=== PATIENT | female | born 1990 | race Caucasian/White ===

== ENCOUNTER 2017-05-15 05:48 | Inpatient (IN) | payer BC ==
[2017-05-15] MEDS ORDERED: Carboprost Tromethamine 250 MCG/1 ML Amp IM PRN (08:23)
[2017-05-15] MEDS ORDERED: Methylergonovine 0.2 MG/1 ML Amp IM PRN (08:23)
[2017-05-15] MEDS ORDERED: Misoprostol 200 MCG Tab PO PRN (08:23)
[2017-05-15] MEDS ORDERED: Lidocaine 1% 50 ML MDV INJECT PRN (08:23)
[2017-05-15] MEDS ORDERED: Nalbuphine 10 MG/1 ML Vial IVPUSH PRN (08:23)
[2017-05-15] MEDS ORDERED: Sodium Chloride 0.9% 2.5 ML Syringe FLUSH PRN (08:23)
[2017-05-15] MEDS ORDERED: Water For Irrigation,Sterile 1,000 ML Container IRR PRN (08:23)
[2017-05-15] MEDS ORDERED: Sodium Chloride 0.9% 10 ML Syringe FLUSH PRN (08:23)
[2017-05-15] MEDS ORDERED: Butorphanol 1 MG/ML SDV IVPUSH PRN (08:23)
[2017-05-15] MEDS ORDERED: Ampicillin 2 GM in Sodium Chloride 0.9% 100 ML IV ONE (08:23)
[2017-05-15] MEDS ORDERED: Oxytocin/Lactated Ringers 30 UNIT/500 ML BAG IV SCH (08:30)
[2017-05-15] MEDS: Lactated Ringers 1,000 ML IV SCH ×2 (08:55→10:51)
[2017-05-15] MEDS ORDERED: Ropivacaine 0.2% 2 MG/ML 20 ML SDV ONE (10:39)
--- NOTE | 2017-05-15 11:09 | PCM.PREANE ---
Preanesthetic Assessment - Anesthesia/Transfusion/Family Hx Anesthesia History: Prior Anesthesia Without Reaction Family History of Anesthesia Reaction: No - Review of Systems Other: Reports: None - Physical Assessment Height: 5 ft 6 in Weight: 86.636 kg ASA Class: 2 Mental Status: Alert & Oriented x3 Airway Class: Mallampati = 1 Thyro-Mental Finger Breadths: 3 Mouth Opening Finger Breadths: 3 ROM/Head Extension: Full - Lab Values: Laboratory Last Values WBC 14.28 K/uL (4.0-11.0) H 05/15/17 08:33 RBC 4.15 M/uL (4.30-5.90) L 05/15/17 08:33 Hgb 12.3 g/dL (12.0-16.0) 05/15/17 08:33 Hct 37.1 % (36.0-46.0) 05/15/17 08:33 MCV 89.4 fL (80.0-98.0) 05/15/17 08:33 MCH 29.6 pg (27.0-32.0) 05/15/17 08:33 MCHC 33.2 g/dL (31.0-37.0) 05/15/17 08:33 RDW Std Deviation 45.3 fl (28.0-62.0) 05/15/17 08:33 RDW Coeff of Ally 14 % (11.0-15.0) 05/15/17 08:33 Plt Count 234 K/uL (150-400) 05/15/17 08:33 MPV 10.40 fL (7.40-12.00) 05/15/17 08:33 Nucleated RBC % 0.0 /100WBC 05/15/17 08:33 Nucleated RBCs # 0 K/uL 05/15/17 08:33 Blood Type AB POSITIVE 05/15/17 08:33 Antibody Screen NEGATIVE 05/15/17 08:33 - Allergies Allergies/Adverse Reactions: Allergies Allergy/AdvReac Type Severity Reaction Status Date / Time No Known Allergies Allergy Verified 05/15/17 05:56 - Blood Blood Available: Yes Product(s) Available: PRBC - Acknowledgements Anesthesia Type Planned: Epidural Pt an Appropriate Candidate for the Planned Anesthesia: Yes Alternatives and Risks of Anesthesia Discussed w Pt/Guardian: Yes Pt/Guardian Understands and Agrees with Anesthesia Plan: Yes PreAnesthesia Questionnaire - Past Surgical History HEENT Surgical History: Reports: Oral Surgery - CURRENT (IN HOUSE) MEDS Current Meds: Current Medications Butorphanol Tartrate (Stadol) 1 mg IVPUSH Q1H PRN PRN Reason: Pain Carboprost Tromethamine (Hemabate Ds) 250 mcg IM ASDIRECTED PRN PRN Reason: Post Hemorrhage Lactated Ringer's (Ringers, Lactated) 1,000 mls @ 150 mls/hr IV ASDIRECTED COUNT INCLUDES THE [facility] Last Admin: 05/15/17 10:51 Dose: 150 mls/hr Ampicillin Sodium 1 gm/ Sodium (Chloride) 50 mls @ 100 mls/hr IV Q4H COUNT INCLUDES THE [facility] Lidocaine HCl (Xylocaine 1%) 50 ml INJECT .ONCE PRN PRN Reason: Laceration repair Methylergonovine Maleate (Methergine) 0.2 mg IM ASDIRECTED PRN PRN Reason: Post Hemorrhage Misoprostol (Cytotec) 200 mcg PO .ONCE PRN PRN Reason: Post Hemorrhage Nalbuphine HCl (Nubain) 10 mg IVPUSH Q1H PRN PRN Reason: Pain (severe 7-10) Sodium Chloride (Saline Flush) 10 ml FLUSH ASDIRECTED PRN PRN Reason: Keep Vein Open Sodium Chloride (Saline Flush) 2.5 ml FLUSH ASDIRECTED PRN PRN Reason: Keep Vein Open Sterile Water (Sterile Water For Irrigation) 1,000 ml IRR ASDIRECTED PRN PRN Reason: delivery Discontinued Medications Ampicillin Sodium 2 gm/ Sodium (Chloride) 100 mls @ 200 mls/hr IV ONETIME ONE Stop: 05/15/17 08:52 Last Admin: 05/15/17 08:55 Dose: 200 mls/hr Oxytocin/Lactated Ringer's (Pitocin In Lr 30 Units/500 Ml) 30 unit in 500 mls @ 250 mls/hr IV TITRATE COUNT INCLUDES THE [facility] PRN Reason: 250 MUNITS/MIN Stop: 05/15/17 10:29 Ropivacaine/Fentanyl/NS (Fentanyl 2 Mcg-Ropiv 0.2%-Ns) Confirm Administered Dose 100 mls @ as directed .ROUTE .STK-MED ONE Stop: 05/15/17 10:40 Ropivacaine (Naropin 0.2%) Confirm Administered Dose 20 ml .ROUTE .STK-MED ONE Stop: 05/15/17 10:40
[2017-05-15] MEDS: Ampicillin 1 GM in Sodium Chloride 0.9% 50 ML IV SCH ×2 (12:11→16:11)
[2017-05-15] MEDS ORDERED: Oxytocin/Lactated Ringers 30 UNIT/500 ML BAG ONE (17:36)
--- NOTE | 2017-05-15 18:44 | PCM.DEL ---
L & D Note - General Info Date of Service: 05/15/17 Mother's Due Date: 05/17/17 - Delivery Note Labor: Spontaneous, Augmented by ARM Delivery Outcome: Livebirth Delivery Method: Spontaneous Vaginal Delivery Presentation: Left Occiput Anterior (ANT[place]INETTE) Nuchal Cord: None Anesthesia Type: None, Epidural Anesthetic: Lidocaine (Xylocaine) 0.5% Plain Amniotic Fluid Description: Clear Episiotomy Type: None Laceration: None, 2nd Degree, Perineal Suture type: Other (caprosyn 2-0) Suture size: 2-0 Placenta: Intact, Spontaneous Estimated Blood Loss: 300 Resuscitation Needed: No : Suctioned Score 1 min: 8 Score 5 min: 9 Vacuum Extractor Progress Note - Alternative Labor Strategies Considered Alternative Labor Strategies Considered:: Reports: No - Patient Data Weight - Most Recent: 86.636 kg Lab Results Last 24 Hours: Laboratory Results - last 24 hr 05/15/17 05/15/17 Range/Units 08:33 08:33 WBC 14.28 H (4.0-11.0) K/uL RBC 4.15 L (4.30-5.90) M/uL Hgb 12.3 (12.0-16.0) g/dL Hct 37.1 (36.0-46.0) % MCV 89.4 (80.0-98.0) fL MCH 29.6 (27.0-32.0) pg MCHC 33.2 (31.0-37.0) g/dL RDW Std Deviation 45.3 (28.0-62.0) fl RDW Coeff of Ally 14 (11.0-15.0) % Plt Count 234 (150-400) K/uL MPV 10.40 (7.40-12.00) fL Nucleated RBC % 0.0 /100WBC Nucleated RBCs # 0 K/uL Blood Type AB POSITIVE Antibody Screen NEGATIVE Med Orders - Current: Current Medications Butorphanol Tartrate (Stadol) 1 mg IVPUSH Q1H PRN PRN Reason: Pain Carboprost Tromethamine (Hemabate Ds) 250 mcg IM ASDIRECTED PRN PRN Reason: Post Hemorrhage Lactated Ringer's (Ringers, Lactated) 1,000 mls @ 150 mls/hr IV ASDIRECTED TIA Last Admin: 05/15/17 10:51 Dose: 150 mls/hr Ampicillin Sodium 1 gm/ Sodium (Chloride) 50 mls @ 100 mls/hr IV Q4H [facility] Last Admin: 05/15/17 16:11 Dose: 100 mls/hr Lidocaine HCl (Xylocaine 1%) 50 ml INJECT .ONCE PRN PRN Reason: Laceration repair Last Admin: 05/15/17 17:55 Dose: 50 ml Methylergonovine Maleate (Methergine) 0.2 mg IM ASDIRECTED PRN PRN Reason: Post Hemorrhage Misoprostol (Cytotec) 200 mcg PO .ONCE PRN PRN Reason: Post Hemorrhage Nalbuphine HCl (Nubain) 10 mg IVPUSH Q1H PRN PRN Reason: Pain (severe 7-10) Sodium Chloride (Saline Flush) 10 ml FLUSH ASDIRECTED PRN PRN Reason: Keep Vein Open Sodium Chloride (Saline Flush) 2.5 ml FLUSH ASDIRECTED PRN PRN Reason: Keep Vein Open Sterile Water (Sterile Water For Irrigation) 1,000 ml IRR ASDIRECTED PRN PRN Reason: delivery Last Admin: 05/15/17 17:55 Dose: 1,000 ml Discontinued Medications Ampicillin Sodium 2 gm/ Sodium (Chloride) 100 mls @ 200 mls/hr IV ONETIME ONE Stop: 05/15/17 08:52 Last Admin: 05/15/17 08:55 Dose: 200 mls/hr Oxytocin/Lactated Ringer's (Pitocin In Lr 30 Units/500 Ml) 30 unit in 500 mls @ 250 mls/hr IV TITRATE TIA PRN Reason: 250 MUNITS/MIN Stop: 05/15/17 10:29 Last Admin: 05/15/17 17:45 Dose: 250 munits/min, 250 mls/hr Ropivacaine/Fentanyl/NS (Fentanyl 2 Mcg-Ropiv 0.2%-Ns) Confirm Administered Dose 100 mls @ as directed .ROUTE .STK-MED ONE Stop: 05/15/17 10:40 Oxytocin/Lactated Ringer's (Pitocin In Lr 30 Units/500 Ml) Confirm Administered Dose 30 unit in 500 mls @ as directed .ROUTE .STK-MED ONE Stop: 05/15/17 17:37 Ropivacaine (Naropin 0.2%) Confirm Administered Dose 20 ml .ROUTE .STK-MED ONE Stop: 05/15/17 10:40 - Problem List & Annotations (1) Delivery normal SNOMED Code(s): 48337628 Code(s): O80 - ENCOUNTER FOR FULL-TERM UNCOMPLICATED DELIVERY; Z37.9 - OUTCOME OF DELIVERY, UNSPECIFIED Status: Acute Current Visit: Yes (2) Delivery normal SNOMED Code(s): 67118791 Code(s): O80 - ENCOUNTER FOR FULL-TERM UNCOMPLICATED DELIVERY; Z37.9 - OUTCOME OF DELIVERY, UNSPECIFIED Status: Acute Current Visit: Yes - Problem List Review Problem List Initiated/Reviewed/Updated: Yes - Assessment Assessment:: 26 P1 s/p with secondary degree perineal laceration - Plan Plan:: Pain control as need allow to ambulate Regular diet
[2017-05-15] MEDS ORDERED: Bisacodyl 10 MG Supp RECTAL PRN (18:53)
[2017-05-15] MEDS ORDERED: Ibuprofen 400 MG Tab PO PRN (18:53)
[2017-05-15] MEDS ORDERED: Docusate Sodium 100 MG Cap PO PRN (18:53)
[2017-05-15] MEDS ORDERED: Benzocaine/Menthol 20%-0.5% Spray 78 GM Cannister TOP PRN (18:53)
[2017-05-15] MEDS ORDERED: Acetaminophen 500 MG Tab PO PRN ×2 (18:53)
[2017-05-15] MEDS ORDERED: Lanolin 100% Cream 7 GM Tube TOP PRN (18:53)
[2017-05-15] MEDS ORDERED: Witch Hazel Medicated Pads 40/Jar TOP PRN (18:53)
[2017-05-15] MEDS ORDERED: Acetaminophen/oxyCODONE 325-5 MG Tab PO PRN (18:59)
--- NOTE | 2017-05-15 21:09 | PCM48HPAN ---
Post Anesthesia Note - EVALUATION WITHIN 48HRS OF ANESTHETIC Vital Signs in Normal Range: Yes Patient Participated in Evaluation: Yes Respiratory Function Stable: Yes Airway Patent: Yes Cardiovascular Function Stable: Yes Hydration Status Stable: Yes Pain Control Satisfactory: Yes Nausea and Vomiting Control Satisfactory: Yes Mental Status Recovered: Yes
[2017-05-15] MEDS: Ibuprofen 800 MG Tab PO PRN (22:42)
[2017-05-16 05:39] VITALS: BP 101/58
--- NOTE | 2017-05-16 08:10 | PCM.PNPP ---
<Del Doss - Last Filed: 05/16/17 08:04> - General Info Date of Service: 05/16/17 Admission Dx/Problem (Free Text): 39/5 weeks gestation, spontaneous onset of labor Subjective Update: Pt is doing well today. Her only concern is that she has some pain on the bottom of her tailbone. She has decreasing, non foul smelling lochia. Pain has been well controlled. Patient has been without difficulties. Pt has had no difficulties urination but has not had a bowel movment yet. Pt denies fever, chills, SOB, or chest pain. Functional Status: Reports: Pain Controlled, Tolerating Diet, Ambulating, Urinating - Review of Systems General: Reports: No Symptoms Pulmonary: Reports: No Symptoms Cardiovascular: Reports: No Symptoms Gastrointestinal: Reports: No Symptoms Genitourinary: Reports: No Symptoms - General Info Date of Service: 05/16/17 - Patient Data Vital Signs - Most Recent: Last Vital Signs Temp 36.5 C 05/16/17 04:00 Pulse 79 05/16/17 04:00 Resp 16 05/16/17 04:00 BP 101/58 L 05/16/17 04:00 Pulse Ox 95 05/16/17 04:00 Weight - Most Recent: 191 lb Lab Results - Last 24 Hours: Laboratory Results - last 24 hr 05/15/17 05/15/17 05/16/17 Range/Units 08:33 08:33 04:29 WBC 14.28 H (4.0-11.0) K/uL RBC 4.15 L (4.30-5.90) M/uL Hgb 12.3 11.1 L (12.0-16.0) g/dL Hct 37.1 33.7 L (36.0-46.0) % MCV 89.4 (80.0-98.0) fL MCH 29.6 (27.0-32.0) pg MCHC 33.2 (31.0-37.0) g/dL RDW Std Deviation 45.3 (28.0-62.0) fl RDW Coeff of Ally 14 (11.0-15.0) % Plt Count 234 (150-400) K/uL MPV 10.40 (7.40-12.00) fL Nucleated RBC % 0.0 /100WBC Nucleated RBCs # 0 K/uL Blood Type AB POSITIVE Antibody Screen NEGATIVE Med Orders - Current: Current Medications Acetaminophen (Tylenol Extra Strength) 500 mg PO Q4H PRN PRN Reason: Pain Acetaminophen (Tylenol Extra Strength) 1,000 mg PO Q4H PRN PRN Reason: Pain Benzocaine/Menthol (Dermoplast Pain Relief 20%-0.5% [place]) 0 gm TOP ASDIRECTED PRN PRN Reason: Perineal Comfort Measure Last Admin: 05/15/17 22:41 Dose: 1 spray Bisacodyl (Dulcolax) 10 mg RECTAL .ONCE PRN PRN Reason: Constipation Docusate Sodium (Colace) 100 mg PO BID PRN PRN Reason: Constipation Last Admin: 05/15/17 22:42 Dose: 100 mg Emollient Ointment (Lansinoh Hpa) 0 gm TOP ASDIRECTED PRN PRN Reason: Sore Nipples Last Admin: 05/15/17 22:42 Dose: 1 gm Ibuprofen (Motrin) 400 mg PO Q4H PRN PRN Reason: Pain Ibuprofen (Motrin) 800 mg PO Q6H PRN PRN Reason: Pain Last Admin: 05/15/17 22:42 Dose: 800 mg Oxycodone/Acetaminophen (Percocet 325-5 Mg) 1 - 2 tab PO Q6H PRN PRN Reason: Pain (moderate 4-6) Sodium Chloride (Saline Flush) 10 ml FLUSH ASDIRECTED PRN PRN Reason: Keep Vein Open Sodium Chloride (Saline Flush) 2.5 ml FLUSH ASDIRECTED PRN PRN Reason: Keep Vein Open Witch Daisy (Tucks) 1 pad TOP ASDIRECTED PRN PRN Reason: comfort care Last Admin: 05/15/17 22:41 Dose: 1 pad Discontinued Medications Butorphanol Tartrate (Stadol) 1 mg IVPUSH Q1H PRN PRN Reason: Pain Carboprost Tromethamine (Hemabate Ds) 250 mcg IM ASDIRECTED PRN PRN Reason: Post Hemorrhage Ampicillin Sodium 2 gm/ Sodium (Chloride) 100 mls @ 200 mls/hr IV ONETIME ONE Stop: 05/15/17 08:52 Last Admin: 05/15/17 08:55 Dose: 200 mls/hr Lactated Ringer's (Ringers, Lactated) 1,000 mls @ 150 mls/hr IV ASDIRECTED TIA Last Admin: 05/15/17 10:51 Dose: 150 mls/hr Oxytocin/Lactated Ringer's (Pitocin In Lr 30 Units/500 Ml) 30 unit in 500 mls @ 250 mls/hr IV TITRATE TIA PRN Reason: 250 MUNITS/MIN Stop: 05/15/17 10:29 Last Admin: 05/15/17 17:45 Dose: 250 munits/min, 250 mls/hr Ampicillin Sodium 1 gm/ Sodium (Chloride) 50 mls @ 100 mls/hr IV Q4H TIA Last Admin: 05/15/17 16:11 Dose: 100 mls/hr Ropivacaine/Fentanyl/NS (Fentanyl 2 Mcg-Ropiv 0.2%-Ns) Confirm Administered Dose 100 mls @ as directed .ROUTE .STK-MED ONE Stop: 05/15/17 10:40 Last Admin: 05/16/17 05:47 Dose: Not Given Oxytocin/Lactated Ringer's (Pitocin In Lr 30 Units/500 Ml) Confirm Administered Dose 30 unit in 500 mls @ as directed .ROUTE .STK-MED ONE Stop: 05/15/17 17:37 Last Admin: 05/16/17 05:47 Dose: Not Given Lidocaine HCl (Xylocaine 1%) 50 ml INJECT .ONCE PRN PRN Reason: Laceration repair Last Admin: 05/15/17 17:55 Dose: 50 ml Methylergonovine Maleate (Methergine) 0.2 mg IM ASDIRECTED PRN PRN Reason: Post Hemorrhage Misoprostol (Cytotec) 200 mcg PO .ONCE PRN PRN Reason: Post Hemorrhage Nalbuphine HCl (Nubain) 10 mg IVPUSH Q1H PRN PRN Reason: Pain (severe 7-10) Ropivacaine (Naropin 0.2%) Confirm Administered Dose 20 ml .ROUTE .STK-MED ONE Stop: 05/15/17 10:40 Last Admin: 05/16/17 05:47 Dose: Not Given Sterile Water (Sterile Water For Irrigation) 1,000 ml IRR ASDIRECTED PRN PRN Reason: delivery Last Admin: 05/15/17 17:55 Dose: 1,000 ml - Interaction Disposition, : in Room with Family Infant Interaction: Holding Infant Feeding: Breastfed ; Nursed Well Support Person: - Recovery Exam Fundal Tone: Firm Fundal Level: 1 Fingerbreadths Above Umbilicus Fundal Placement: Midline Lochia Amount: Small Lochia Color: Rubra/Red Perineum Description: Other (see below) Episiotomy/Laceration: Approximated Bladder Status: Voiding Urinary Elimination: Voided - Exam General: Alert, Oriented Lungs: Clear to Auscultation, Normal Respiratory Effort. No: Crackles, Rales, Rhonchi Cardiovascular: Regular Rate, Regular Rhythm, No Murmurs. No: Gallops, Rubs GI/Abdominal Exam: Normal Bowel Sounds, Soft (Utuerus firm, midline, 2cm above umbilicus), No Distention - Problem List Review Problem List Initiated/Reviewed/Updated: Yes - Assessment Assessment:: 26 P1 s/p with secondary degree perineal laceration, PPD 1 Pain well controlled Urinating well - Plan Plan:: Routine cares Pain control as need Continue to support and frequent ambulation Followup in 6 weeks <Fany Leon - Last Filed: 05/16/17 09:05> - Patient Data Vital Signs - Most Recent: Last Vital Signs Temp 36.5 C 05/16/17 04:00 Pulse 79 05/16/17 04:00 Resp 16 05/16/17 04:00 BP 101/58 L 05/16/17 04:00 Pulse Ox 95 05/16/17 04:00 Lab Results - Last 24 Hours: Laboratory Results - last 24 hr 05/15/17 05/16/17 Range/Units 08:33 04:29 Hgb 11.1 L (12.0-16.0) g/dL Hct 33.7 L (36.0-46.0) % Blood Type AB POSITIVE Antibody Screen NEGATIVE Med Orders - Current: Current Medications Acetaminophen (Tylenol Extra Strength) 500 mg PO Q4H PRN PRN Reason: Pain Acetaminophen (Tylenol Extra Strength) 1,000 mg PO Q4H PRN PRN Reason: Pain Benzocaine/Menthol (Dermoplast Pain Relief 20%-0.5% [place]) 0 gm TOP ASDIRECTED PRN PRN Reason: Perineal Comfort Measure Last Admin: 05/15/17 22:41 Dose: 1 spray Bisacodyl (Dulcolax) 10 mg RECTAL .ONCE PRN PRN Reason: Constipation Docusate Sodium (Colace) 100 mg PO BID PRN PRN Reason: Constipation Last Admin: 05/15/17 22:42 Dose: 100 mg Emollient Ointment (Lansinoh Hpa) 0 gm TOP ASDIRECTED PRN PRN Reason: Sore Nipples Last Admin: 05/15/17 22:42 Dose: 1 gm Ibuprofen (Motrin) 400 mg PO Q4H PRN PRN Reason: Pain Ibuprofen (Motrin) 800 mg PO Q6H PRN PRN Reason: Pain Last Admin: 05/15/17 22:42 Dose: 800 mg Oxycodone/Acetaminophen (Percocet 325-5 Mg) 1 - 2 tab PO Q6H PRN PRN Reason: Pain (moderate 4-6) Sodium Chloride (Saline Flush) 10 ml FLUSH ASDIRECTED PRN PRN Reason: Keep Vein Open Sodium Chloride (Saline Flush) 2.5 ml FLUSH ASDIRECTED PRN PRN Reason: Keep Vein Open Witch Daisy (Tucks) 1 pad TOP ASDIRECTED PRN PRN Reason: comfort care Last Admin: 05/15/17 22:41 Dose: 1 pad Discontinued Medications Butorphanol Tartrate (Stadol) 1 mg IVPUSH Q1H PRN PRN Reason: Pain Carboprost Tromethamine (Hemabate Ds) 250 mcg IM ASDIRECTED PRN PRN Reason: Post Hemorrhage Ampicillin Sodium 2 gm/ Sodium (Chloride) 100 mls @ 200 mls/hr IV ONETIME ONE Stop: 05/15/17 08:52 Last Admin: 05/15/17 08:55 Dose: 200 mls/hr Lactated Ringer's (Ringers, Lactated) 1,000 mls @ 150 mls/hr IV ASDIRECTED TIA Last Admin: 05/15/17 10:51 Dose: 150 mls/hr Oxytocin/Lactated Ringer's (Pitocin In Lr 30 Units/500 Ml) 30 unit in 500 mls @ 250 mls/hr IV TITRATE TIA PRN Reason: 250 MUNITS/MIN Stop: 05/15/17 10:29 Last Admin: 05/15/17 17:45 Dose: 250 munits/min, 250 mls/hr Ampicillin Sodium 1 gm/ Sodium (Chloride) 50 mls @ 100 mls/hr IV Q4H TIA Last Admin: 05/15/17 16:11 Dose: 100 mls/hr Ropivacaine/Fentanyl/NS (Fentanyl 2 Mcg-Ropiv 0.2%-Ns) Confirm Administered Dose 100 mls @ as directed .ROUTE .[employer] ONE Stop: 05/15/17 10:40 Last Admin: 05/16/17 05:47 Dose: Not Given Oxytocin/Lactated Ringer's (Pitocin In Lr 30 Units/500 Ml) Confirm Administered Dose 30 unit in 500 mls @ as directed .ROUTE .[employer] ONE Stop: 05/15/17 17:37 Last Admin: 05/16/17 05:47 Dose: Not Given Lidocaine HCl (Xylocaine 1%) 50 ml INJECT .ONCE PRN PRN Reason: Laceration repair Last Admin: 05/15/17 17:55 Dose: 50 ml Methylergonovine Maleate (Methergine) 0.2 mg IM ASDIRECTED PRN PRN Reason: Post Hemorrhage Misoprostol (Cytotec) 200 mcg PO .ONCE PRN PRN Reason: Post Hemorrhage Nalbuphine HCl (Nubain) 10 mg IVPUSH Q1H PRN PRN Reason: Pain (severe 7-10) Ropivacaine (Naropin 0.2%) Confirm Administered Dose 20 ml .ROUTE .[employer] ONE Stop: 05/15/17 10:40 Last Admin: 05/16/17 05:47 Dose: Not Given Sterile Water (Sterile Water For Irrigation) 1,000 ml IRR ASDIRECTED PRN PRN Reason: delivery Last Admin: 05/15/17 17:55 Dose: 1,000 ml - My Orders Last 24 Hours: My Active Orders 05/15/17 08:23 Peripheral IV Care [RC] . DIRECTED Sodium Chloride 0.9% [Saline Flush] 10 ml FLUSH ASDIRECTED PRN Sodium Chloride 0.9% [Saline Flush] 2.5 ml FLUSH ASDIRECTED PRN 05/15/17 08:24 Heart Tones [RC] CONTINUOUS Non Stress Test [RC] PER UNIT ROUTINE May Shower [RC] ASDIRECTED Notify Provider [RC] PRN Up ad Pushpa [RC] ASDIRECTED Vaginal Exam [RC] PRN Vital Signs [RC] PER UNIT ROUTINE Peripheral IV Insertion Adult [OM.PC] Routine 05/16/17 Lunch Regular Diet [DIET]
[2017-05-16] MEDS: Ibuprofen 800 MG Tab PO PRN (11:25)
--- NOTE | 2017-05-16 15:29 | OR ---
SURGEON: AMBROCIO HAGENUZOENRIQUE DATE OF PROCEDURE: 05/15/2017 PREOPERATIVE DIAGNOSIS: A 26-year-old 1, para 0, at 39 weeks 5 days, admitted in early labor and progressed to active labor and delivered. POSTOPERATIVE DIAGNOSIS: A 26-year-old 1, para 0, at 39 weeks 5 days, admitted in early labor and progressed to active labor and delivered. PROCEDURE: Spontaneous vaginal delivery. FINDINGS: Live female born, scores were 8 and 9, weight was 3960 grams. Placenta was delivered without complications. COMPLICATIONS: None. ESTIMATED BLOOD LOSS: 300 mL. DISPOSITION: Stable, infant to [facility]. BRIEF HISTORY: She was a 26-year-old low-risk patient, GBS positive status, who came in at around 0800, in early labor. Vaginal exam at that time was 3 cm, 80, -1. The patient then was re-evaluated by 1130; was found to be 4 cm, 80, -1. At 1230, she was again re-evaluated, and she was ruptured after she has received 2 doses of antibiotics for GBS prophylaxis. The patient was noted to be 5 cm, 80, -1 at the time of rupture. The patient then was re-evaluated at 1630 hours and was found to be fully dilated, +1 station. The patient was then encouraged to push. The patient pushed for about 2 hours. The infant was then subsequently delivered, and the cord was then clamped and cut. was handed over to the awaiting nurse. The placenta was then delivered by controlled cord traction, after the arterial blood gases were taken. A second-degree laceration was noted. This was sutured in layers with Caprosyn suture 2-0. Hemostasis was noted after the suturing. The placenta was found to be intact. The Pitocin was running at this point. All instruments were correct x2. and infant was weighed and then brought to the mother for . The patient was in stable condition. Vital signs were normal after delivery. The patient tolerated the procedure well. Dr. Peterson was present for the entire procedure. GURVINDER QUINONES /[id number] MTDMaxine
== END 2017-05-16 22:10 | disposition home or self-care (01) | DRG 560 ==
LOC: MW.OBCHECK 05:48 → MW.OB 05:49 → MW.OBCHECK 08:24 → MW.OB 08:24 → INTOOBSV 15:53 → OBSVTOIN 15:53 → MW.OB 22:30
PROVIDERS: ADMIT Obstetrics & Gynecology; ATTEND Obstetrics & Gynecology
PROC: 10E0XZZ Delivery of Products of Conception, External Approach (ICD-10-PCS; principal; 2017-05-15)
PROC: 0KQM0ZZ Repair Perineum Muscle, Open Approach (ICD-10-PCS; 2017-05-15)
PROC: 10907ZC Drainage of Amniotic Fluid, Therapeutic from Products of Conception, Via Natural or Artificial Opening (ICD-10-PCS; 2017-05-15)
DX: O70.1 Second degree perineal laceration during delivery (principal); Z3A.39 39 weeks gestation of pregnancy; Z37.0 Single live birth
CPT/HCPCS: 36415; 59025; 85014; 85018; 85027; 86850; 86900; 86901; A9270-GY; J0290; J2795; J7030; J7050; J7120

== ENCOUNTER 2018-01-24 16:20 | Emergency (ER) | payer BC ==
--- NOTE | 2018-01-24 16:37 | EDM.PDOC ---
ED HPI GENERAL MEDICAL PROBLEM - General Chief Complaint: Laceration Stated Complaint: Laceration Time Seen by Provider: 01/24/18 16:21 Source of Information: Reports: Patient History Limitations: Reports: No Limitations - History of Present Illness INITIAL COMMENTS - FREE TEXT/NARRATIVE: HISTORY AND PHYSICAL: History of present illness: Patient is a 27-year-old female who presents to the emergency room today with complaints of right index finger laceration, pain and certain of infection. She states 2 days ago she had a laceration on the pad of her right index finger and since that time has been doing Epsom salt soaks, bacitracin dressings and thorough cleaning. She has had burning pain to the distal tip of her finger and is concerned she may have an infection as the skin appears erythematous and tender to touch. No drainage or exudate coming from the site. Denies any crush injury or trauma to the affected finer. Denies any fever, chills, chest pain, shortness of breath or cough. Denies any abdominal pain, nausea, vomiting, diarrhea or constipation. Unsure of last tetanus update. Review of systems: As per history of present illness and below otherwise all systems reviewed and negative. Past medical history: As per history of present illness and as reviewed below otherwise noncontributory. Surgical history: As per history of present illness and as reviewed below otherwise noncontributory. Social history: No reported history of drug or alcohol abuse. Family history: As per history of present illness and as reviewed below otherwise noncontributory. Physical exam: General: Developed and well-nourished 27-year-old female. Alert and oriented. Nontoxic appearing and in no acute distress. HEENT: Atraumatic, normocephalic, pupils equal and reactive bilaterally, negative for conjunctival pallor or scleral icterus, mucous membranes moist, throat clear, neck supple, nontender, trachea midline. No drooling or trismus noted. No meningeal signs Lungs: Clear to auscultation, breath sounds equal bilaterally, chest nontender. Heart: S1S2, regular rate and rhythm without overt murmur Abdomen: Soft, nondistended, nontender. Negative for masses or hepatosplenomegaly. Negative for costovertebral tenderness. Pelvis: Stable nontender. Genitourinary: Deferred. Rectal: Deferred. Skin: Superficial skin avulsion noted to the distal tip of her right index finger. Intact, warm, dry. No lesions or rashes noted. Extremities: Atraumatic, negative for cords or calf pain. Neurovascular unremarkable. Neuro: Awake, alert, oriented. Cranial nerves II through XII unremarkable. Cerebellum unremarkable. Motor and sensory unremarkable throughout. Exam nonfocal. Notes: Area cleansed with chlorhexidine. Bacitracin dressing/tube gauze dressing applied. Will prescribe Keflex 500 mg twice a day 10 days. Tramadol 1 tab every 4-6 hours as needed for nighttime use. Dispense 10, no refill. Her to follow-up with Dr. Nisha Bowman, the hand surgeon for further evaluation and management. She voices understanding and is agreeable to plan of care. She denies any further questions at this time. Diagnostics: [] Therapeutics: Tetanus, wound care, bacitracin dressing. Impression: Laceration Plan: 1. Please take the area clean and dry. Take the antibiotic as prescribed. 2. Tylenol and/or ibuprofen as needed for pain management. Tramadol for nighttime use. This medication may cause drowsiness so do not take it will driving or needing to be functioning outside of the house. 3. Follow-up with the hand surgeon (Dr Sridevi Bowman) or your primary care provider in the next 1-2 days. Return to the ED as needed and as discussed. Definitive disposition and diagnosis as appropriate pending reevaluation and review of above. Duration: Day(s): Location: Reports: Upper Extremity, Right - Related Data Allergies Allergy/AdvReac Type Severity Reaction Status Date / Time No Known Allergies Allergy Verified 01/24/18 16:28 Home Meds: Home Meds . [No Known Home Meds] 01/24/18 [History] Past Medical History - Past Surgical History HEENT Surgical History: Reports: Oral Surgery Social & Family History - Family History Cardiac: Reports: High Cholesterol, Hypertension, Other (See Below) Other Cardiac Family History: heart disease Neurological: Reports: Parkinson's Endocrine/Metabolic: Reports: Diabetes, type II, Hypothyroidism Oncologic: Reports: Brain, Ovarian - Caffeine Use Caffeine Use: Reports: Coffee, Soda, Tea ED ROS GENERAL - Review of Systems Review Of Systems: ROS reveals no pertinent complaints other than HPI. ED EXAM, SKIN/RASH Exam: See Below (See dictation) Departure - Departure Time of Disposition: 16:38 Disposition: Home, Self-Care 01 Clinical Impression: Finger laceration Qualifiers: Encounter type: initial encounter Finger: index finger Damage to nail status: without damage Foreign body presence: without foreign body Laterality: right Qualified Code(s): S61.210A - Laceration without foreign body of right index finger without damage to nail, initial encounter - Discharge Information Instructions: Laceration Care, Adult, [id number] Referrals: PCP,None [Primary Care Provider] - Additional Instructions: The following information is given to patients seen in the emergency department who are being discharged to home. This information is to outline your options for follow-up care. We provide all patients seen in our emergency department with a follow-up referral. The need for follow-up, as well as the timing and circumstances, are variable depending upon the specifics of your emergency department visit. If you don't have a primary care physician on staff, we will provide you with a referral. We always advise you to contact your personal physician following an emergency department visit to inform them of the circumstance of the visit and for follow-up with them and/or the need for any referrals to a consulting specialist. The emergency department will also refer you to a specialist when appropriate. This referral assures that you have the opportunity for follow-up care with a specialist. All of these measure are taken in an effort to provide you with optimal care, which includes your follow-up. Under all circumstances we always encourage you to contact your private physician who remains a resource for coordinating your care. When calling for follow-up care, please make the office aware that this follow-up is from your recent emergency room visit. If for any reason you are refused follow-up, please contact the [facility] Emergency Department at and asked to speak to the emergency department charge nurse. [facility] [address] [place] [id number] [facility] Specialty Care - Plastic Surgery Professional Building [address] [place] [address], [address] [place] [address] 1. Please take the area clean and dry. Take the antibiotic as prescribed. 2. Tylenol and/or ibuprofen as needed for pain management. Tramadol for nighttime use. This medication may cause drowsiness so do not take it will driving or needing to be functioning outside of the house. 3. Follow-up with the hand surgeon (Dr Sridevi Bowman) or your primary care provider in the next 1-2 days. Return to the ED as needed and as discussed.
[2018-01-24] MEDS ORDERED: Diphtheria,Pertussis(Acell),Tetanus Vaccine 0.5 ML Syringe IM ONE (16:39)
[2018-01-24] MEDS ORDERED: Bacitracin Oint 1 GM U/D Packet TOP ONE (16:39)
[2018-01-24 17:38] VITALS: BP 117/76
== END 2018-01-24 17:34 | disposition home or self-care (01) ==
LOC: MW.ED 16:20
DX: S61.210A Laceration without foreign body of right index finger without damage to nail, initial encounter (principal); X58.XXXA Exposure to other specified factors, initial encounter
CPT/HCPCS: 90471; 90715; 99282; 99282-25

== ENCOUNTER 2019-09-05 07:56 | Inpatient (IN) | payer BC ==
[2019-09-05] MEDS ORDERED: Ondansetron 4 MG/2 ML SDV IVPUSH PRN (08:18)
[2019-09-05] MEDS ORDERED: Sodium Chloride 0.9% 2.5 ML Syringe FLUSH PRN (08:18)
[2019-09-05] MEDS ORDERED: Sodium Chloride 0.9% 10 ML SDV IV PRN (08:18)
[2019-09-05] MEDS ORDERED: Terbutaline 1 MG/ML SDV SUBCUT PRN (08:18)
[2019-09-05] MEDS ORDERED: Tranexamic Acid 1,000 MG in Sodium Chloride 0.9% 100 ML IV PRN (08:18)
[2019-09-05] MEDS ORDERED: Sodium Chloride 0.9% 10 ML Syringe FLUSH PRN (08:18)
[2019-09-05] MEDS ORDERED: Lidocaine 1% 50 ML MDV INJECT PRN (08:18)
[2019-09-05] MEDS ORDERED: Methylergonovine 0.2 MG/1 ML Amp IM PRN (08:18)
[2019-09-05] MEDS ORDERED: Nalbuphine 10 MG/1 ML Vial IVPUSH PRN (08:18)
[2019-09-05] MEDS ORDERED: Butorphanol 1 MG/ML SDV IVPUSH PRN (08:18)
[2019-09-05] MEDS ORDERED: Misoprostol 200 MCG Tab PO PRN (08:18)
[2019-09-05] MEDS ORDERED: Water For Irrigation,Sterile 1,000 ML Container IRR PRN (08:18)
[2019-09-05] MEDS ORDERED: Misoprostol 25 MCG (1/4 of 100 MCG) Tab VAG PRN (08:18)
[2019-09-05] MEDS ORDERED: Carboprost Tromethamine 250 MCG/1 ML Amp IM PRN (08:18)
[2019-09-05] MEDS ORDERED: Oxytocin/0.9 % Sodium Chloride 30 UNIT/500 ML BAG IV SCH ×2 (08:30)
[2019-09-05] MEDS: Misoprostol 25 MCG (1/4 of 100 MCG) Tab VAG PRN ×3 (13:36→21:58)
[2019-09-06] MEDS: Lactated Ringers 1,000 ML IV SCH ×2 (03:21→06:02)
[2019-09-06] MEDS ORDERED: Bupivicaine/fentaNYL/NS 250 ML ONE (05:50)
--- NOTE | 2019-09-06 06:39 | PCM.PREANE ---
Preanesthetic Assessment - Procedure Proposed Procedure: continuous labor epidural - Anesthesia/Transfusion/Family Hx Anesthesia History: Prior Anesthesia Without Reaction Transfusion History: No Prior Transfusion(s) - Review of Systems General: No Symptoms Pulmonary: No Symptoms Cardiovascular: No Symptoms Gastrointestinal: No Symptoms Neurological: No Symptoms Other: Reports: None - Physical Assessment Height: 5 ft 6 in Weight: 90.718 kg ASA Class: 2 Mental Status: Alert & Oriented x3 Airway Class: Mallampati = 1 Dentition: Reports: Normal Dentition ROM/Head Extension: Full Lungs: Clear to Auscultation, Normal Respiratory Effort Cardiovascular: Regular Rate, Regular Rhythm - Lab Values: Laboratory Last Values WBC 8.21 K/uL (4.0-11.0) 09/05/19 08:50 RBC 4.11 M/uL (4.30-5.90) L 09/05/19 08:50 Hgb 12.7 g/dL (12.0-16.0) 09/05/19 08:50 Hct 37.6 % (36.0-46.0) 09/05/19 08:50 MCV 91.5 fL (80.0-98.0) 09/05/19 08:50 MCH 30.9 pg (27.0-32.0) 09/05/19 08:50 MCHC 33.8 g/dL (31.0-37.0) 09/05/19 08:50 RDW Std Deviation 44.2 fl (28.0-62.0) 09/05/19 08:50 RDW Coeff of Ally 13 % (11.0-15.0) 09/05/19 08:50 Plt Count 203 K/uL (150-400) 09/05/19 08:50 MPV 10.50 fL (7.40-12.00) 09/05/19 08:50 Nucleated RBC % 0.0 /100WBC 09/05/19 08:50 Nucleated RBCs # 0 K/uL 09/05/19 08:50 Blood Type AB POSITIVE 09/05/19 08:50 Antibody Screen NEGATIVE 09/05/19 08:50 - Allergies Allergies/Adverse Reactions: Allergies Allergy/AdvReac Type Severity Reaction Status Date / Time No Known Allergies Allergy Verified 01/24/18 16:28 - Acknowledgements Anesthesia Type Planned: Epidural Pt an Appropriate Candidate for the Planned Anesthesia: Yes Alternatives and Risks of Anesthesia Discussed w Pt/Guardian: Yes Pt/Guardian Understands and Agrees with Anesthesia Plan: Yes PreAnesthesia Questionnaire - Past Health History Medical/Surgical History: Denies Medical/Surgical History HEENT History: Reports: None Cardiovascular History: Reports: None Respiratory History: Reports: None Gastrointestinal History: Reports: None Genitourinary History: Reports: None 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: Musculoskeletal History: Reports: None Neurological History: Reports: None Hematologic History: Reports: None - Infectious Disease History Infectious Disease History: Reports: Chicken Pox - Past Surgical History HEENT Surgical History: Reports: Oral Surgery - SUBSTANCE USE Smoking Status *Q: Never Smoker Tobacco Use Within Last Twelve Months: No Second Hand Smoke Exposure: No Recreational Drug Use History: No - HOME MEDS Home Medications: Home Meds Acetaminophen [Tylenol] 325 mg PO Q4H PRN 08/26/19 [History] Ferrous Sulfate [Iron] 325 mg PO DAILY 08/26/19 [History] Magnesium 250 mg PO DAILY 08/26/19 [History] Vits #93/Iron Fum/FA [ Formula Tablet] 1 each PO DAILY [History] - CURRENT (IN HOUSE) MEDS Current Meds: Current Medications Butorphanol Tartrate (Stadol) 1 mg IVPUSH Q1H PRN PRN Reason: Pain Last Admin: 09/06/19 03:28 Dose: 1 mg Carboprost Tromethamine (Hemabate Ds) 250 mcg IM ASDIRECTED PRN PRN Reason: Post Hemorrhage Lactated Ringer's (Ringers, Lactated) 1,000 mls @ 150 mls/hr IV ASDIRECTED TIA Last Admin: 09/06/19 06:02 Dose: 150 mls/hr Oxytocin/Sodium Chloride (Oxytocin 30 Unit/500 Ml-Ns) 30 unit in 500 mls @ 500 mls/hr IV TITRATE TIA Oxytocin/Sodium Chloride (Oxytocin 30 Unit/500 Ml-Ns) 30 unit in 500 mls @ 2 mls/hr IV TITRATE TIA; Protocol Last Titration: 09/06/19 04:58 Dose: 10 munits/min, 10 mls/hr Tranexamic Acid 1,000 mg/ (Sodium Chloride) 110 mls @ 660 mls/hr IV ONETIME PRN PRN Reason: Bleeding Lidocaine HCl (Xylocaine 1%) 50 ml INJECT ONETIME PRN PRN Reason: Laceration repair Methylergonovine Maleate (Methergine) 0.2 mg IM ASDIRECTED PRN PRN Reason: Post Hemorrhage Misoprostol (Cytotec) 200 mcg PO ONETIME PRN PRN Reason: Post Hemorrhage Misoprostol (Cytotec) 25 mcg VAG ONETIME PRN PRN Reason: Cervical Ripening Last Admin: 09/05/19 09:05 Dose: 25 mcg Misoprostol (Cytotec) 25 mcg VAG Q4H PRN PRN Reason: Cervical Ripening Last Admin: 09/05/19 21:58 Dose: 25 mcg Nalbuphine HCl (Nubain) 10 mg IVPUSH Q1H PRN PRN Reason: Pain (severe 7-10) Ondansetron HCl (Zofran) 4 mg IVPUSH Q6H PRN PRN Reason: Nausea/Vomiting Sodium Chloride (Saline Flush) 10 ml FLUSH ASDIRECTED PRN PRN Reason: Keep Vein Open Sodium Chloride (Saline Flush) 2.5 ml FLUSH ASDIRECTED PRN PRN Reason: Keep Vein Open Sodium Chloride (Normal Saline) 10 ml IV ASDIRECTED PRN PRN Reason: IV Use Sterile Water (Sterile Water For Irrigation) 1,000 ml IRR ASDIRECTED PRN PRN Reason: delivery Terbutaline Sulfate (Brethine) 0.25 mg SUBCUT ASDIRECTED PRN PRN Reason: Tacysystole Discontinued Medications Fentanyl/Bupivacaine HCl (Fentanyl/Bupivacaine/Ns 2 Mcg-0.125% 250 Ml) Confirm Administered Dose 250 mls @ as directed .ROUTE .[facility] Stop: 09/06/19 05:51
[2019-09-06] MEDS ORDERED: Aluminum Hydroxide/Magnesium Hydroxide/Simethicone Susp 30 ML Cup PO PRN (11:59)
[2019-09-06] MEDS ORDERED: Lanolin 100% Cream 7 GM Tube TOP PRN (11:59)
[2019-09-06] MEDS ORDERED: Bisacodyl 10 MG Supp RECTAL PRN (11:59)
[2019-09-06] MEDS ORDERED: oxyCODONE 5 MG Tab PO PRN (11:59)
[2019-09-06] MEDS ORDERED: Ibuprofen 400 MG Tab PO PRN (11:59)
[2019-09-06] MEDS ORDERED: Docusate Sodium 100 MG Cap PO PRN (11:59)
[2019-09-06] MEDS ORDERED: Witch Hazel Medicated Pads 40/Jar TOP PRN (11:59)
[2019-09-06] MEDS ORDERED: Acetaminophen 500 MG Tab PO PRN (11:59)
[2019-09-06] MEDS ORDERED: Benzocaine/Menthol 20%-0.5% Spray 78 GM Cannister TOP PRN (11:59)
--- NOTE | 2019-09-06 11:59 | PCM.OPNOTE ---
- General Post-Op/Procedure Note Date of Surgery/Procedure: 09/06/19 Operative Procedure(s): /1st MLL repaired Findings: Viable male APGARs 9, 9 weight 3550 gm/ Spontaneous delivery intacta placenta with 3V cord Pre Op Diagnosis: 39/3 week IUP. Elective IOL Post-Op Diagnosis: Same Anesthesia Technique: Epidural Primary Surgeon: Charisse Connors EBL in mLs: 250 Complications: none known Condition: Stable Free Text/Narrative:: Dictation [id number]
--- NOTE | 2019-09-06 12:26 | OR ---
SURGEON: Charisse Connors M.D. DATE OF PROCEDURE: 09/06/2019 PREOPERATIVE DIAGNOSES: 1. A 39-3/7 weeks' intrauterine . 2. Elective induction of labor. POSTOPERATIVE DIAGNOSIS: 1. A 39-3/7 weeks' intrauterine . 2. Elective induction of labor. PROCEDURES: Spontaneous vaginal delivery, first-degree midline laceration repaired. PRIMARY SURGEON: Charisse Connors MD. ANESTHESIA: Epidural. ESTIMATED BLOOD LOSS: 250 mL. COMPLICATIONS: None known. FINDINGS: A viable male. scores 9 at one minute and 9 at five minutes. Weight of 3550 g. Spontaneous delivery, intact placenta, 3-vessel cord. DISPOSITION: to nursery, mom in LDRP. PROCEDURE DETAILS: Jamilah is a 28-year-old G2, P1, at 39-2/7 weeks' gestational age who was admitted on the morning of 09/05/2019 for elective induction of labor due to patient request. Initially, the patient underwent Cytotec ripening, made very slow progression throughout the day. That night close to midnight, we did place a [place] bulb for mechanical cervical dilation and converted to Pitocin induction. The patient began to make more progression thereafter. Became increasingly uncomfortable, underwent epidural in the teacher early childhood development hours of 09/06/2019. At that time, was found to be 5 cm. She then progressed to 6 cm and then to complete, +2 station. Pushed readily. I was called for delivery. Upon my arrival, the patient was placed in modified dorsal lithotomy position, was prepped and draped in the usual aseptic manner. With pushing efforts, was able to push. Delivered infant's head atraumatically spontaneously, followed by anterior shoulder, posterior shoulder, and remainder of the body without difficulty. The infant's oropharynx and nares were bulb suctioned. was crying and vigorous. Infant was handed off to his mother with attending nursing staff at her side. After a delay, cord was clamped x2 and cut. Cord arterial, cord venous, cord blood sampling obtained. Light pressure was applied. The placenta was delivered spontaneously intact. Vigorous fundal uterine massage was then applied while 30 units of Pitocin was delivered in 500 mL of IV fluid. Upon inspection of cervix, vaginal sidewall, and perineum, there was a first-degree midline laceration. This was repaired using 3-0 Vicryl in the usual fashion. Hemostasis remained evident. Sponge count, needle count, and instrument count were correct. The patient remained in LDRP, to nursery. KALIE / STACIE /[id number]
[2019-09-06] MEDS: Ibuprofen 800 MG Tab PO PRN ×2 (13:37→19:50)
[2019-09-06] MEDS: Acetaminophen 500 MG Tab PO PRN (23:04)
[2019-09-07] MEDS: Ibuprofen 800 MG Tab PO PRN ×2 (03:33→10:13)
--- NOTE | 2019-09-07 08:23 | PCM48HPAN ---
Post Anesthesia Note - EVALUATION WITHIN 48HRS OF ANESTHETIC Vital Signs in Normal Range: Yes Patient Participated in Evaluation: Yes Respiratory Function Stable: Yes Airway Patent: Yes Cardiovascular Function Stable: Yes Hydration Status Stable: Yes Pain Control Satisfactory: Yes Nausea and Vomiting Control Satisfactory: Yes Mental Status Recovered: Yes Vital Signs: Last Vital Signs Temp 36.2 C 09/07/19 03:46 Pulse 76 09/07/19 03:46 Resp 18 09/06/19 19:53 BP 117/89 09/07/19 03:46 Pulse Ox 98 09/07/19 03:46
[2019-09-07] MEDS: Acetaminophen 500 MG Tab PO PRN (09:03)
[2019-09-07 09:15] VITALS: BP 117/75; PULSE 81
--- NOTE | 2019-09-07 11:37 | PCM.PNPP ---
- General Info Date of Service: 09/07/19 Functional Status: Reports: Pain Controlled, Tolerating Diet, Ambulating, Urinating - Review of Systems General: Denies: Fever, Weakness, Fatigue Pulmonary: Denies: Shortness of Breath Cardiovascular: Denies: Chest Pain, Palpitations, Lightheadedness Gastrointestinal: Denies: Abdominal Pain, Nausea, Vomiting Genitourinary: Denies: Flank Pain Musculoskeletal: Reports: No Symptoms Skin: Reports: No Symptoms Neurological: Reports: No Symptoms Psychiatric: Reports: No Symptoms - General Info Date of Service: 09/07/19 - Patient Data Vital Signs - Most Recent: Last Vital Signs Temp 36.4 C 09/07/19 09:11 Pulse 81 09/07/19 09:11 Resp 18 09/07/19 09:11 BP 117/75 09/07/19 09:11 Pulse Ox 98 09/07/19 09:11 Weight - Most Recent: 90.718 kg Lab Results - Last 24 Hours: Laboratory Results - last 24 hr 09/06/19 09/07/19 Range/Units 10:54 05:40 Hgb 11.9 L (12.0-16.0) g/dL Hct 35.8 L (36.0-46.0) % Cord ABG pH 7.321 (7.18-7.38) Cord ABG Base Excess -1 H (-10--2) Cord VBG pH 7.342 (7.25-7.45) Cord VBG Base Excess -2 (-10--2) Med Orders - Current: Current Medications Acetaminophen (Tylenol Extra Strength) 500 mg PO Q4H PRN PRN Reason: Pain Acetaminophen (Tylenol Extra Strength) 1,000 mg PO Q4H PRN PRN Reason: Pain Last Admin: 09/07/19 09:03 Dose: 1,000 mg Al Hydroxide/Mg Hydroxide (Mag-Al Plus) 30 ml PO Q8H PRN PRN Reason: Heartburn Benzocaine/Menthol (Dermoplast Pain Relief 20%-0.5% Kremlin) 78 gm TOP ASDIRECTED PRN PRN Reason: Perineal Comfort Measure Last Admin: 09/06/19 13:36 Dose: 78 gm Bisacodyl (Dulcolax) 10 mg RECTAL ONETIME PRN PRN Reason: Constipation Butorphanol Tartrate (Stadol) 1 mg IVPUSH Q1H PRN PRN Reason: Pain Last Admin: 09/06/19 03:28 Dose: 1 mg Carboprost Tromethamine (Hemabate Ds) 250 mcg IM ASDIRECTED PRN PRN Reason: Post Hemorrhage Docusate Sodium (Colace) 100 mg PO BID PRN PRN Reason: Constipation Last Admin: 09/06/19 13:37 Dose: 100 mg Emollient Ointment (Lansinoh Hpa) 0 gm TOP ASDIRECTED PRN PRN Reason: Sore Nipples Lactated Ringer's (Ringers, Lactated) 1,000 mls @ 150 mls/hr IV ASDIRECTED TIA Last Infusion: 09/06/19 08:12 Dose: 999 mls/hr Oxytocin/Sodium Chloride (Oxytocin 30 Unit/500 Ml-Ns) 30 unit in 500 mls @ 500 mls/hr IV TITRATE TIA Oxytocin/Sodium Chloride (Oxytocin 30 Unit/500 Ml-Ns) 30 unit in 500 mls @ 2 mls/hr IV TITRATE TIA; Protocol Last Titration: 09/06/19 04:58 Dose: 10 munits/min, 10 mls/hr Tranexamic Acid 1,000 mg/ (Sodium Chloride) 110 mls @ 660 mls/hr IV ONETIME PRN PRN Reason: Bleeding Ibuprofen (Motrin) 400 mg PO Q4H PRN PRN Reason: Pain Ibuprofen (Motrin) 800 mg PO Q6H PRN PRN Reason: Pain Last Admin: 09/07/19 10:13 Dose: 800 mg Lidocaine HCl (Xylocaine 1%) 50 ml INJECT ONETIME PRN PRN Reason: Laceration repair Methylergonovine Maleate (Methergine) 0.2 mg IM ASDIRECTED PRN PRN Reason: Post Hemorrhage Misoprostol (Cytotec) 200 mcg PO ONETIME PRN PRN Reason: Post Hemorrhage Misoprostol (Cytotec) 25 mcg VAG ONETIME PRN PRN Reason: Cervical Ripening Last Admin: 09/05/19 09:05 Dose: 25 mcg Misoprostol (Cytotec) 25 mcg VAG Q4H PRN PRN Reason: Cervical Ripening Last Admin: 09/05/19 21:58 Dose: 25 mcg Nalbuphine HCl (Nubain) 10 mg IVPUSH Q1H PRN PRN Reason: Pain (severe 7-10) Ondansetron HCl (Zofran) 4 mg IVPUSH Q6H PRN PRN Reason: Nausea/Vomiting Oxycodone HCl (Oxycodone) 5 mg PO Q2H PRN PRN Reason: Pain Sodium Chloride (Saline Flush) 10 ml FLUSH ASDIRECTED PRN PRN Reason: Keep Vein Open Sodium Chloride (Saline Flush) 2.5 ml FLUSH ASDIRECTED PRN PRN Reason: Keep Vein Open Sodium Chloride (Normal Saline) 10 ml IV ASDIRECTED PRN PRN Reason: IV Use Sterile Water (Sterile Water For Irrigation) 1,000 ml IRR ASDIRECTED PRN PRN Reason: delivery Terbutaline Sulfate (Brethine) 0.25 mg SUBCUT ASDIRECTED PRN PRN Reason: Tacysystole Witch Daisy (Tucks) 1 pad TOP ASDIRECTED PRN PRN Reason: comfort care Last Admin: 09/06/19 13:37 Dose: 1 pad Discontinued Medications Fentanyl/Bupivacaine HCl (Fentanyl/Bupivacaine/Ns 2 Mcg-0.125% 250 Ml) Confirm Administered Dose 250 mls @ as directed .ROUTE .[facility] ONE Stop: 09/06/19 05:51 Last Admin: 09/06/19 07:11 Dose: Not Given - Infant Interaction Support Person: - Recovery Exam Fundal Tone: Firm Fundal Level: 1 Fingerbreadths Below Umbilicus Fundal Placement: Midline Lochia Amount: Scant Lochia Color: Rubra/Red Perineum Description: Other (see below) Other Perinuem Description: 1st degree laceration. Episiotomy/Laceration: Approximated Bladder Status: Voiding - Exam General: Alert, Oriented Lungs: Normal Respiratory Effort Cardiovascular: Regular Rate, Regular Rhythm GI/Abdominal Exam: Normal Bowel Sounds, Soft Extremities: Pedal Edema (trace). No: Sherlyn's Sign Skin: Warm, Dry, Intact Neurological: No New Focal Deficit Psy/Mental Status: Alert, Normal Affect, Normal Mood - Problem List & Annotations (1) Vaginal delivery SNOMED Code(s): 542367639 Code(s): O80 - ENCOUNTER FOR FULL-TERM UNCOMPLICATED DELIVERY Status: Acute Current Visit: No - Problem List Review Problem List Initiated/Reviewed/Updated: Yes - My Orders Last 24 Hours: My Active Orders 09/06/19 11:59 Patient Status [ADT] Routine Notify Provider Vital Signs [RC] ASDIRECTED Vital Signs [RC] PER UNIT ROUTINE Acetaminophen [Tylenol Extra Strength] 1,000 mg PO Q4H PRN Acetaminophen [Tylenol Extra Strength] 500 mg PO Q4H PRN Alum Hydrox/Mag Hydrox/Simeth [Mag-Al Plus] 30 ml PO Q8H PRN Benzocaine/Menthol [Dermoplast Pain Relief 20%-0.5% Kremlin] 78 gm TOP ASDIRECTED PRN Docusate Sodium [Colace] 100 mg PO BID PRN Ibuprofen [Motrin] 400 mg PO Q4H PRN Ibuprofen [Motrin] 800 mg PO Q6H PRN Lanolin [Lansinoh HPA] See Dose Instructions TOP ASDIRECTED PRN Witch Daisy [Tucks] 1 pad TOP ASDIRECTED PRN bisacodyL [Dulcolax] 10 mg RECTAL ONETIME PRN oxyCODONE 5 mg PO Q2H PRN Assess Lochia [WOMSER] Per Unit Routine Assess Uterine Involution [WOMSER] Per Unit Routine Ice Therapy [OM.PC] Per Unit Routine Perineal Care [OM.PC] Per Unit Routine Peripheral IV Discontinue [OM.PC] Routine Sitz Bath [OM.PC] Per Unit Routine 09/06/19 Lunch Regular Diet [DIET] 09/07/19 11:35 Ready for Discharge [RC] PER UNIT ROUTINE - Assessment Assessment:: PPD 1 status post - Plan Plan:: Patient doing well overall, discharge to home today. Discharge instructions. Infection and bleeding warnings reviewed. Follow up at [facility] 6 weeks.
== END 2019-09-07 14:45 | disposition home or self-care (01) | DRG 560 ==
LOC: MW.OB 07:56 → MW.OBCHECK 07:56 → MW.OB 08:19 → OBSVTOIN 09-06 10:54 → MW.OB 09-06 14:10
PROVIDERS: ADMIT Obstetrics & Gynecology; ATTEND Obstetrics & Gynecology
PROC: 10E0XZZ Delivery of Products of Conception, External Approach (ICD-10-PCS; principal; 2019-09-06)
PROC: 3E0P7VZ Introduction of Hormone into Female Reproductive, Via Natural or Artificial Opening (ICD-10-PCS; 2019-09-06)
PROC: 3E033VJ Introduction of Other Hormone into Peripheral Vein, Percutaneous Approach (ICD-10-PCS; 2019-09-06)
PROC: 0HQ9XZZ Repair Perineum Skin, External Approach (ICD-10-PCS; 2019-09-06)
PROC: 3E0R3BZ Introduction of Anesthetic Agent into Spinal Canal, Percutaneous Approach (ICD-10-PCS; 2019-09-06)
DX: O70.0 First degree perineal laceration during delivery (principal); Z3A.39 39 weeks gestation of pregnancy; Z37.0 Single live birth
CPT/HCPCS: 36415; 51702; 59025; 59200; 59409; 82803; 85014; 85018; 85027; 86593; 86850; 86900; 86901; A9270-GY; J0595; J2590; J7120